=== PATIENT | female | born 1985 | race Caucasian/White ===

== ENCOUNTER → 2017-10-18 | Outpatient (CLI) | payer BC | LOC: RAD 17:27 | DX: R94.31 Abnormal electrocardiogram [ECG] [EKG] (principal); Z86.79 Personal history of other diseases of the circulatory system ==

== ENCOUNTER → 2024-07-05 | Outpatient (CLI) | payer OTHER | LOC: RAD 10:04 | DX: K80.20 Calculus of gallbladder without cholecystitis without obstruction (principal) ==

== ENCOUNTER → 2024-07-19 | Outpatient (CLI) | payer OTHER ==
[~2024-07-19] MED LIST: Iohexol 300 - 100 ML VIAL IV ONE; NS 100 ML IV SCH
== END ==
LOC: RAD 12:21
DX: R16.0 Hepatomegaly, not elsewhere classified (principal); E88.89 Other specified metabolic disorders
CPT/HCPCS: Q9967